=== PATIENT | male | born 1965 | race African-American/Black ===

== ENCOUNTER 2021-11-01 19:59 | Inpatient (IN) | payer OTHER ==
[~2021-11-01] VITALS: Ht 188 cm; Wt 79.4 kg
[2021-11-01] MEDS ORDERED: SODIUM CHLORIDE 0.9% 1000ML 1,000 ML IV STA (20:07)
[2021-11-01] MEDS ORDERED: ONDANSETRON HCL INJ 2MG/ML 2ML 2 MG/ML VIAL IV STA (20:07)
[2021-11-01 20:27] LABS: BASOPHILS # (AUTO) 0.1 (0.0-0.1); BASOPHILS % 1.3 % (0.0-1.0); EOSINOPHILS # (AUTO) 0.2 (0.0-0.4); EOSINOPHILS % 3.1 % (0.0-6.0); HEMOGLOBIN 12.8 g/dL (14.0-18.0); LYMPHOCYTES # (AUTO) 1.7 (1.0-3.2); LYMPHOCYTES % 32.6 % (18.0-39.1); MEAN CORPUSCULAR HEMOGLOBIN 30.8 pg (28-32); MEAN CORPUSCULAR HGB CONC 32.8 g/dL (31-35); MONOCYTES # (AUTO) 0.5 (0.2-0.8); MONOCYTES % 9.6 % (4.4-11.3); NEUTROPHILS # (AUTO) 2.8 (2.1-6.9); NEUTROPHILS % 53.2 % (38.7-80.0); PLATELET COUNT 219 x10e3/uL (140-360); RED BLOOD COUNT 4.15 x10e6/uL (4.3-5.7); RED CELL DISTRIBUTION WIDTH 13.6 % (11.7-14.4)
[2021-11-01 20:45] LABS: ALANINE AMINOTRANSFERASE 13 IU/L (0-55); ALBUMIN 3.4 g/dL (3.5-5.0); ALBUMIN/GLOBULIN RATIO 1.1 (0.8-2.0); ALKALINE PHOSPHATASE 70 IU/L (40-150); ANION GAP 12.6 mmol/L (8-16); BLOOD UREA NITROGEN 10 mg/dL (7-26); BUN/CREATININE RATIO 13 (6-25); CARBON DIOXIDE 26 mmol/L (22-29); CHLORIDE 110 mmol/L (98-107); CREATINE KINASE 336 IU/L (30-200); CREATININE, SERUM 0.79 mg/dL (0.72-1.25); EST GLOMERULAR FILTRATION RATE 122 ML/MIN (60-); GLUCOSE 103 mg/dL (74-118); POTASSIUM 3.6 mmol/L (3.5-5.1); SODIUM 145 mmol/L (136-145)
[2021-11-01] MEDS ORDERED: CALCIUM GLUCONATE 10% INJ 4.65 MEQ in SODIUM CHLORIDE 0.9% 50ML 50 ML IV ONE (20:45)
[2021-11-01] MEDS ORDERED: GLUCAGON FOR INJ 1 MG VIAL IV ONE (20:45)
[2021-11-01] MEDS ORDERED: ONDANSETRON HCL INJ 2MG/ML 2ML 2 MG/ML VIAL ONE (20:46)
[2021-11-01 20:51] LABS: B-TYPE NATRIURETIC PEPTIDE2 18.1 pg/mL (0-100)
[2021-11-01] MEDS: PIPERACILLIN/TAZOBACTAM 3.375 GM in SODIUM CHLORIDE 0.9% 50ML 50 ML IV SCH (21:10)
[2021-11-01] MEDS ORDERED: SODIUM CHLORIDE 0.9% 50ML 50 ML ONE (21:18)
[2021-11-01] MEDS ORDERED: CALCIUM GLUC 1 G/50 ML NACL 50 ML IV ONE (21:24)
[2021-11-01 22:59] LABS: CLARITY,URINE CLOUDY (CLEAR); COLOR,URINE YELLOW (YELLOW); LEUKOCYTE ESTERASE ,URINE SMALL (NEGATIVE)
[2021-11-01 23:00] LABS: KETONES,URINE TRACE (NEGATIVE); NITRITE,URINE POSITIVE (NEGATIVE); PROTEIN,URINE DIPSTICK 2+ (NEGATIVE); URINE UROBILINOGEN 0.2 mg/dL (0.2 - 1)
[2021-11-01 23:04] LABS: BACTERIA,URINE MODERATE /HPF; EPITHELIAL CELLS,URINE FEW /LPF; WBC,URINE (MAN) 21-50 /HPF (0-5)
[2021-11-01] MEDS: SODIUM CHLORIDE 0.9% 1000ML 1,000 ML IV SCH (23:08)
[2021-11-01 23:49] VITALS: BP 102/59
[2021-11-01 23:53] VITALS: BP 102/59
[2021-11-01 23:55] VITALS: BP 102/59
[2021-11-02] VITALS (8 sets, daily range): BP systolic 91–109; BP diastolic 48–65
[2021-11-02] MEDS ORDERED: ATIVAN0.5 MG PO (00:11)
[2021-11-02] MEDS ORDERED: VIMPAT100 MG (00:11)
[2021-11-02] MEDS ORDERED: RISPERIDONE1 MG PO (00:11)
[2021-11-02] MEDS ORDERED: MAGNESIUM OXID400 MG PO (00:11)
[2021-11-02] MEDS ORDERED: METFORMIN HCL500 MG PO (00:11)
[2021-11-02] MEDS ORDERED: ABILIFY5 MG PO (00:11)
[2021-11-02] MEDS ORDERED: IBUPROFEN200 MG PO (00:11)
[2021-11-02] MEDS ORDERED: DOCUSATE SODIU100 MG PO (00:11)
[2021-11-02] MEDS ORDERED: OXCARBAZEPINE300 MG PO (00:11)
[2021-11-02] MEDS ORDERED: NEURONTIN100 MG PO (00:11)
[2021-11-02] MEDS ORDERED: ASPIRIN CHEW81 MG PO (00:11)
[2021-11-02] MEDS ORDERED: LACTULOSE20 GM/30 M PO (00:11)
[2021-11-02] MEDS: PIPERACILLIN/TAZOBACTAM 3.375 GM in SODIUM CHLORIDE 0.9% 50ML 50 ML IV SCH ×4 (03:22→18:33)
[2021-11-02 05:06] LABS: BASOPHILS # (AUTO) 0.1 (0.0-0.1); BASOPHILS % 0.8 % (0.0-1.0); EOSINOPHILS # (AUTO) 0.1 (0.0-0.4); EOSINOPHILS % 1.5 % (0.0-6.0); HEMATOCRIT 36.5 % (38.2-49.6); HEMOGLOBIN 12.2 g/dL (14.0-18.0); LYMPHOCYTES # (AUTO) 1.3 (1.0-3.2); LYMPHOCYTES % 17.8 % (18.0-39.1); MEAN CORPUSCULAR HGB CONC 33.4 g/dL (31-35); MEAN CORPUSCULAR VOLUME 92.6 fL (81-99); MONOCYTES # (AUTO) 0.5 (0.2-0.8); NEUTROPHILS # (AUTO) 5.3 (2.1-6.9); NEUTROPHILS % 72.6 % (38.7-80.0); PLATELET COUNT 229 x10e3/uL (140-360); RED BLOOD COUNT 3.94 x10e6/uL (4.3-5.7); RED CELL DISTRIBUTION WIDTH 13.4 % (11.7-14.4)
[2021-11-02 05:31] LABS: ANION GAP 8.9 mmol/L (8-16); CALCIUM 8.9 mg/dL (8.4-10.2); CREATININE, SERUM 0.76 mg/dL (0.72-1.25); POTASSIUM 3.9 mmol/L (3.5-5.1)
[2021-11-02 05:55] LABS: CREATINE KINASE 313 IU/L (30-200)
[2021-11-02] MEDS ORDERED: LORAZEPAM 0.5 MG TAB PO PRN (08:30)
[2021-11-02] MEDS ORDERED: LACTULOSE SYRUP 20 GM/30 ML UDC PO PRN (08:30)
[2021-11-02] MEDS: DOCUSATE SODIUM 100 MG CAP PO SCH ×2 (09:00→18:22)
[2021-11-02] MEDS ORDERED: ARIPIPRAZOLE 20 MG TAB PO SCH ×2 (09:00→10:00)
[2021-11-02] MEDS ORDERED: LACOSAMIDE 100 MG TABLET PO SCH (09:00)
[2021-11-02] MEDS: SODIUM CHLORIDE 0.9% 1000ML 1,000 ML IV SCH (11:30)
[2021-11-02] MEDS: OXCARBAZEPINE 300 MG TAB PO SCH ×2 (11:38→18:23)
[2021-11-02] MEDS: RISPERIDONE 1 MG TAB PO SCH (11:38)
[2021-11-02] MEDS: GABAPENTIN 100 MG CAP PO SCH ×3 (11:39→21:00)
[2021-11-02] MEDS: ASPIRIN 81 MG CHEW TAB PO SCH (11:39)
[2021-11-02] MEDS: MAGNESIUM OXIDE 400 MG TAB PO SCH ×2 (11:39→18:23)
[2021-11-02] MEDS: ARIPIPRAZOLE 20 MG TAB PO SCH ×2 (12:30→17:26)
[2021-11-02 13:50] LABS: CREATINE KINASE MB 3.8 ng/mL (0-5.0)
[2021-11-02] MEDS ORDERED: ENOXAPARIN SOD INJ 40 MG/0.4 ML SYR SC SCH (17:00)
[2021-11-02] MEDS: LACOSAMIDE 50 MG TABLET PO SCH (18:23)
[2021-11-02] MEDS ORDERED: SODIUM CHLORIDE 0.9% 250ML 250 ML ONE (18:38)
[2021-11-03 01:11] VITALS: BP 106/68
[2021-11-03 04:36] VITALS: BP 108/67
[2021-11-03] MEDS: PIPERACILLIN/TAZOBACTAM 3.375 GM in SODIUM CHLORIDE 0.9% 50ML 50 ML IV SCH ×4 (06:00→12:20)
[2021-11-03 08:12] VITALS: BP 116/52
[2021-11-03 08:25] VITALS: BP 116/52
[2021-11-03] MEDS: ASPIRIN 81 MG CHEW TAB PO SCH (09:36)
[2021-11-03] MEDS: DOCUSATE SODIUM 100 MG CAP PO SCH (09:36)
[2021-11-03] MEDS: MAGNESIUM OXIDE 400 MG TAB PO SCH (09:36)
[2021-11-03] MEDS: GABAPENTIN 100 MG CAP PO SCH ×2 (09:37→15:15)
[2021-11-03] MEDS: OXCARBAZEPINE 300 MG TAB PO SCH (09:37)
[2021-11-03] MEDS: LACOSAMIDE 50 MG TABLET PO SCH (09:37)
[2021-11-03] MEDS: RISPERIDONE 1 MG TAB PO SCH (10:10)
[2021-11-03 11:35] VITALS: BP 110/56
[2021-11-03] MEDS ORDERED: CEFUROXIME250 MG PO (12:40)
[2021-11-03 16:10] VITALS: BP 114/52
[2021-11-04] MEDS ORDERED: COLLAGENASE 5 GM TUBE TOP SCH (09:00)
[2021-11-04] MEDS ORDERED: BALSAM PERU/CASTOR OIL 60 GM OINT...G. TP SCH (09:00)
== END 2021-11-03 18:36 | DRG 689 ==
LOC: ER 20:16 → ERHOLD 22:22 → IMCU 23:30 → MED/SURG3 11-02 16:19
PROVIDERS: ADMIT Internal Medicine; ATTEND Internal Medicine
DX: N39.0 Urinary tract infection, site not specified (principal); G93.41 Metabolic encephalopathy; G82.50 Quadriplegia, unspecified; R64 Cachexia; F20.0 Paranoid schizophrenia; E44.1 Mild protein-calorie malnutrition; E87.2 Acidosis; E11.42 Type 2 diabetes mellitus with diabetic polyneuropathy; G40.909 Epilepsy, unspecified, not intractable, without status epilepticus; Z87.820 Personal history of traumatic brain injury; F32.9 Major depressive disorder, single episode, unspecified; R00.1 Bradycardia, unspecified; Z68.22 Body mass index [BMI] 22.0-22.9, adult; R13.10 Dysphagia, unspecified; Z20.822 Contact with and (suspected) exposure to COVID-19
CPT/HCPCS: 36415; 51700; 70450; 71045; 71250; 80053; 81001; 82140; 82550; 82553; 82948; 83605; 83880; 84484; 85025; 87040; 93005; 93306; 94799; 97139; 99251; 99285; J1610; J1650; J2405; J2543; J7030; J7050; U0002